=== PATIENT | female | born 1950 | race African-American/Black ===

== ENCOUNTER 2024-11-28 10:12 | Inpatient (IN) | payer MEDICARE, BC ==
[~2024-11-28] VITALS: Ht 170.2 cm; Wt 52.2 kg
[2024-11-28] MEDS ORDERED: ONDANSETRON HCL/PF 4 MG/2 ML VIAL ONE (11:12)
[2024-11-28] MEDS ORDERED: MORPHINE SULFATE INJ 4 MG/ML DISP.SYRIN ONE (11:13)
[2024-11-28] MEDS: IV NS 0.9% 500 ML BAG IV ONE (11:41)
[2024-11-28] MEDS: ONDANSETRON HCL/PF 4 MG/2 ML VIAL IVP ONE (11:42)
[2024-11-28] MEDS: MORPHINE SULFATE INJ 2 MG/ML DISP.SYRIN IV ONE (11:42)
[2024-11-28] MEDS ORDERED: ACETAMINOPHEN ES 500 MG TABLET ONE (12:05)
[2024-11-28 12:13] LABS: BASOPHILS % (AUTO) 0.5 % (0.0-2.0); EOSINOPHILS # (AUTO) 0.1 K/uL (0.0-0.7); EOSINOPHILS % (AUTO) 1.1 % (0.0-6.0); HEMATOCRIT 39 % (33-45); HEMOGLOBIN 12.9 g/dL (11.5-14.8); LYMPHOCYTES # (AUTO) 1.4 K/uL (0.8-4.8); LYMPHOCYTES % (AUTO) 14.9 % (20.0-44.0); MEAN CORPUSCULAR HEMOGLOBIN 30 PG (26.0-33.0); MEAN CORPUSCULAR HGB CONC 33 g/dl (31.0-36.0); MEAN CORPUSCULAR VOLUME 89 fL (82-100); MONOCYTES # (AUTO) 0.6 K/uL (0.1-1.30); MONOCYTES % (AUTO) 6.4 % (2.0-12.0); NEUTROPHILS # (AUTO) 7.1 K/uL (1.8-8.9); NEUTROPHILS % (AUTO) 77.1 % (43.0-81.0); PLATELET COUNT (AUTO) 251 K/uL (150-450); RED BLOOD CELL COUNT(AUTO) 4.36 MIL/uL (4.0-5.2); RED CELL DISTRIBUTION WIDTH 17.6 % (11.5-15.0); WHITE BLOOD COUNT (AUTO) 9.3 K/uL (4.3-11.0)
[2024-11-28] MEDS: ACETAMINOPHEN ES 500 MG TABLET PO ONE (12:15)
[2024-11-28 12:16] LABS: PARTIAL THROMBOPLASTIN TIME 27.1 SEC (24.3-34.3); PROTHROMBIN TIME 10.6 SECS (9.2-11.1)
[2024-11-28 12:38] LABS: CALCIUM, SERUM 10.1 mg/dL (8.5-10.1); CREATININE 0.7 mg/dL (0.6-1.3); POTASSIUM 2.9 mmol/L (3.5-5.1)
[2024-11-28] MEDS ORDERED: NALO4SPR BNOSTRILS (13:52)
[2024-11-28] MEDS ORDERED: HYDR-4303 PO (13:52)
[2024-11-28] MEDS ORDERED: ONDA4TAB11 PO (13:52)
[2024-11-28] MEDS ORDERED: FENTANYL PF 100MCG/2ML AMPUL ONE (14:30)
[2024-11-28] MEDS: FENTANYL PF 100MCG/2ML AMPUL IV ONE (14:34)
[2024-11-28] MEDS ORDERED: ONDANSETRON HCL/PF 4 MG/2 ML VIAL IVP PRN (18:30)
[2024-11-28] MEDS ORDERED: POTASSIUM CHLORIDE 20 MEQ TAB.PRT.SR PO ONE ×2 (18:30→19:23)
[2024-11-28] MEDS ORDERED: MAG HYDROX/AL HYDROX/SIMETH 30 ML UDC PO PRN (18:30)
[2024-11-28] MEDS ORDERED: MORPHINE SULFATE INJ 2 MG/ML DISP.SYRIN IV PRN (18:30)
[2024-11-28] MEDS ORDERED: MAGNESIUM HYDROXIDE 30 ML UDC PO PRN (18:30)
[2024-11-28] MEDS ORDERED: Z GUARD REMEDY 4 OZ OINT TP PRN (18:30)
[2024-11-28] MEDS ORDERED: ACETAMINOPHEN 325 MG TABLET ONE (19:23)
[2024-11-28] MEDS: POTASSIUM CHLORIDE 20 MEQ TAB.PRT.SR PO ONE (21:17)
[2024-11-28] MEDS: ACETAMINOPHEN 325 MG TABLET PO PRN (21:18)
[2024-11-29 07:07] LABS: BASOPHILS % (AUTO) 0.5 % (0.0-2.0); EOSINOPHILS # (AUTO) 0.2 K/uL (0.0-0.7); EOSINOPHILS % (AUTO) 2.4 % (0.0-6.0); HEMATOCRIT 33 % (33-45); HEMOGLOBIN 11.1 g/dL (11.5-14.8); LYMPHOCYTES # (AUTO) 1.7 K/uL (0.8-4.8); LYMPHOCYTES % (AUTO) 18.8 % (20.0-44.0); MEAN CORPUSCULAR HEMOGLOBIN 30 PG (26.0-33.0); MEAN CORPUSCULAR HGB CONC 34 g/dl (31.0-36.0); MEAN CORPUSCULAR VOLUME 88 fL (82-100); MONOCYTES # (AUTO) 0.8 K/uL (0.1-1.30); NEUTROPHILS # (AUTO) 6.2 K/uL (1.8-8.9); NEUTROPHILS % (AUTO) 69.3 % (43.0-81.0); PLATELET COUNT (AUTO) 202 K/uL (150-450); RED BLOOD CELL COUNT(AUTO) 3.74 MIL/uL (4.0-5.2); RED CELL DISTRIBUTION WIDTH 17.3 % (11.5-15.0)
[2024-11-29] MEDS: PANTOPRAZOLE 40 MG TABLET.DR PO SCH (07:30)
[2024-11-29 07:45] LABS: CALCIUM, SERUM 8.7 mg/dL (8.5-10.1); CREATININE 0.5 mg/dL (0.6-1.3); MAGNESIUM 1.9 mg/dL (1.8-2.4); POTASSIUM 3.8 mmol/L (3.5-5.1)
[2024-11-29 08:00] VITALS: BP 117/71; TEMP 98.1; O2SAT 100
[2024-11-29 09:00] VITALS: BP 117/71; TEMP 98.1; O2SAT 100
[2024-11-29] MEDS: HYDROCODONE/APAP 5/325MG TABLET PO PRN (09:00)
[2024-11-29] MEDS ORDERED: TRAMADOL HCL 50 MG TABLET PO PRN (12:00)
[2024-11-29 20:00] VITALS: BP 108/62; TEMP 98.2; O2SAT 100
[2024-11-30 08:54] VITALS: BP 109/64; TEMP 98.4; O2SAT 98
[2024-11-30] MEDS: NEOMY SULF/BACITRAC ZN/POLY 15 GM TUBE TP SCH (11:23)
[2024-11-30] MEDS ORDERED: TRAM50TA2 PO (13:49)
== END 2024-11-30 16:00 | disposition home or self-care (01) | DRG 563 ==
LOC: ER 10:19 → MED 18:09
PROVIDERS: ADMIT Nurse Practitioner Acute Care; ATTEND Nurse Practitioner Acute Care
DX: S42.302A Unspecified fracture of shaft of humerus, left arm, initial encounter for closed fracture (principal); C78.02 Secondary malignant neoplasm of left lung; C78.01 Secondary malignant neoplasm of right lung; C67.9 Malignant neoplasm of bladder, unspecified; G47.00 Insomnia, unspecified; W01.0XXA Fall on same level from slipping, tripping and stumbling without subsequent striking against object, initial encounter; Y93.9 Activity, unspecified; Y92.099 Unspecified place in other non-institutional residence as the place of occurrence of the external cause; Z79.60 Long term (current) use of unspecified immunomodulators and immunosuppressants
CPT/HCPCS: 36415; 70450-TC; 73060-TC; 80048-TC; 83735-TC; 84100-TC; 85025-TC; 85730-TC; 97110-TC; 97116-TC; 97530-TC; 97535-TC; G0378; J2270; J2405; J3010; J7040

== ENCOUNTER 2025-09-02 08:17 | Inpatient (IN) | payer MEDICARE, BC ==
[~2025-09-02] VITALS: Ht 170.2 cm; Wt 47.2 kg
[~2025-09-02 08:17] MED LIST: HYDR-4303 PO; NALO4SPR BNOSTRILS; ONDA4TAB11 PO; TRAM50TA2 PO
[2025-09-02 09:36] LABS: PLATELET COUNT (AUTO) 301 K/uL (150-450); RED BLOOD CELL COUNT(AUTO) 3.95 MIL/uL (4.0-5.2); RED CELL DISTRIBUTION WIDTH 17.3 % (11.5-15.0); WHITE BLOOD COUNT (AUTO) 12.6 K/uL (4.3-11.0)
[2025-09-02 09:51] LABS: ASPARTATE AMINOTRANSFERASE 28 U/L (15-37); CREATININE 0.8 mg/dL (0.6-1.3); SODIUM SERUM 139 mmol/L (136-145); TOTAL PROTEIN, SERUM 8.2 g/dL (6.4-8.2); UREA NITROGEN, BLOOD 15 mg/dL (7-18)
[2025-09-02 09:56] LABS: CREATINE KINASE, TOTAL 95 U/L (26-192)
[2025-09-02 10:09] LABS: CALCIUM, SERUM 14.8 mg/dL (8.5-10.1)
[2025-09-02 10:27] LABS: APPEARANCE,URINE CLOUDY (CLEAR); BLOOD, URINE NEGATIVE Ery/uL (NEGATIVE); LEUKOCYTE ESTERASE ,URINE NEGATIVE (NEGATIVE); NITRITE, URINE NEGATIVE (NEGATIVE); UGLUCOSE NEGATIVE (NEGATIVE)
[2025-09-02 10:28] LABS: ADD URINE CULTURE NO; SQUAMOUS EPITHELIAL CELL,UR Few /HPF (None Seen)
[2025-09-02 10:39] LABS: AMPHETAMINE, URINE NEGATIVE (NEGATIVE); BARBITURATE, URINE NEGATIVE (NEGATIVE); BENZODIAZEPINE, URINE NEGATIVE (NEGATIVE); CANNABINOID, URINE NEGATIVE (NEGATIVE); COCCAINE, URINE NEGATIVE (NEGATIVE); OPIATE, URINE NEGATIVE (NEGATIVE)
[2025-09-02] MEDS: IV NS 0.9% 1,000 ML IV ONE (10:41)
[2025-09-02] MEDS ORDERED: MAGNESIUM HYDROXIDE 30 ML UDC PO PRN (11:00)
[2025-09-02] MEDS ORDERED: MAG HYDROX/AL HYDROX/SIMETH 30 ML UDC PO PRN (11:00)
[2025-09-02] MEDS ORDERED: ACETAMINOPHEN 325 MG TABLET PO PRN (11:00)
[2025-09-02] MEDS ORDERED: Z GUARD REMEDY 4 OZ OINT TP PRN (11:00)
[2025-09-02] MEDS ORDERED: ONDANSETRON HCL/PF 4 MG/2 ML VIAL IVP PRN (11:00)
[2025-09-02] MEDS ORDERED: TRAMADOL HCL 50 MG TABLET PO PRN (11:00)
[2025-09-02] MEDS ORDERED: HYDROCODONE/APAP 5/325MG TABLET PO PRN (11:00)
[2025-09-02] MEDS ORDERED: MEGE400O6 PO (11:02)
[2025-09-02 11:40] VITALS: BP 100/63; TEMP 97.7; O2SAT 99
[2025-09-02 15:00] VITALS: BP 114/62; TEMP 98.2; O2SAT 99
[2025-09-02] MEDS: IV NS 0.9% 1,000 ML IV SCH (18:32)
[2025-09-02 20:00] VITALS: BP 98/54; TEMP 98.2; O2SAT 97
[2025-09-03 07:09] LABS: PLATELET COUNT (AUTO) 294 K/uL (150-450); RED BLOOD CELL COUNT(AUTO) 3.22 MIL/uL (4.0-5.2); RED CELL DISTRIBUTION WIDTH 16.3 % (11.5-15.0); WHITE BLOOD COUNT (AUTO) 9.9 K/uL (4.3-11.0)
[2025-09-03 07:35] LABS: CREATININE 0.7 mg/dL (0.6-1.3); PHOSPHORUS 2.4 mg/dL (2.5-4.9); SODIUM SERUM 142.0 mmol/L (136-145); UREA NITROGEN, BLOOD 14.0 mg/dL (7-18)
[2025-09-03 07:39] LABS: CALCIUM, SERUM 15.3 mg/dL (8.5-10.1)
[2025-09-03 08:00] VITALS: BP 109/67; TEMP 97.5; O2SAT 99
[2025-09-03] MEDS: PAMIDRONATE 90 MG in IV NS 0.9% 500 ML IV ONE (10:37)
[2025-09-03 16:00] VITALS: BP 102/61; TEMP 97.7; O2SAT 98
[2025-09-03] MEDS: K PHOS NEUTRAL 250 MG TABLET PO ONE (17:23)
[2025-09-03 17:58] LABS: FIBRINOGEN ACTIVITY 485.0 Mg/dL (213-485); INR 1.03 (0.91-1.10)
[2025-09-03 18:46] LABS: IRON, SERUM 22.0 ug/dl (50-175)
[2025-09-03 20:00] VITALS: BP 105/66; TEMP 97.3; O2SAT 98
[2025-09-04] MEDS: IV NS 0.9% 1,000 ML IV PRN ×2 (03:33→17:04)
[2025-09-04 07:09] LABS: PLATELET COUNT (AUTO) 270 K/uL (150-450); RED BLOOD CELL COUNT(AUTO) 3.01 MIL/uL (4.0-5.2); RED CELL DISTRIBUTION WIDTH 15.8 % (11.5-15.0); WHITE BLOOD COUNT (AUTO) 9.5 K/uL (4.3-11.0)
[2025-09-04 07:31] LABS: ASPARTATE AMINOTRANSFERASE 23.0 U/L (15-37); CREATININE 0.7 mg/dL (0.6-1.3); PHOSPHORUS 2.5 mg/dL (2.5-4.9); SODIUM SERUM 144.0 mmol/L (136-145); TOTAL PROTEIN, SERUM 6.7 g/dL (6.4-8.2); UREA NITROGEN, BLOOD 16.0 mg/dL (7-18)
[2025-09-04 07:53] LABS: CALCIUM, SERUM 13.6 mg/dL (8.5-10.1)
[2025-09-04 08:00] VITALS: BP 109/59; TEMP 97.3; O2SAT 97
[2025-09-04] MEDS: POTASSIUM CHLORIDE 20 MEQ TAB.PRT.SR PO ONE ×2 (09:23→22:36)
[2025-09-04 16:00] VITALS: BP 101/60; TEMP 97.5; O2SAT 99
[2025-09-04] MEDS: FERROUS SULFATE (325 MG) 325 MG/TAB TABLET PO SCH (17:04)
[2025-09-04 20:00] VITALS: BP 102/55; TEMP 98.2; O2SAT 95
[2025-09-05 06:09] LABS: AFP, TUMOR MARKER 3.0 ng/mL (0.0-9.2); CARBOHYDRATE AG 19-9 6 U/mL (0-35); CARCINOEMBRYONIC ANTIGEN (CEA) 1.7 ng/mL (0.0-4.7)
[2025-09-05 07:39] LABS: PLATELET COUNT (AUTO) 251 K/uL (150-450); RED BLOOD CELL COUNT(AUTO) 2.80 MIL/uL (4.0-5.2); RED CELL DISTRIBUTION WIDTH 15.8 % (11.5-15.0); WHITE BLOOD COUNT (AUTO) 7.0 K/uL (4.3-11.0)
[2025-09-05 08:00] VITALS: BP 98/50; TEMP 97.5; O2SAT 98
[2025-09-05 08:09] LABS: FREE KAPPA LT CHAINS SERUM 45.4 mg/L (3.3-19.4); FREE LAMBDA LT CHAIN SERUM 25.9 mg/L (5.7-26.3); IMMUNOGLOBULIN A, SERUM 301 mg/dL (64-422); IMMUNOGLOBULIN M, SERUM 47 mg/dL (26-217); KAPPA/LAMBDA RATIO SERUM 1.75 (0.26-1.65)
[2025-09-05 08:28] LABS: CALCIUM, SERUM 12.9 mg/dL (8.5-10.1); CREATININE 0.6 mg/dL (0.6-1.3); SODIUM SERUM 144.0 mmol/L (136-145); UREA NITROGEN, BLOOD 14.0 mg/dL (7-18)
[2025-09-05] MEDS ORDERED: DIAZEPAM 5 MG TABLET PO ONE (10:00)
[2025-09-05 10:09] LABS: FOLIC ACID 2.6 ng/mL (>3.0)
[2025-09-05] MEDS: IV 1/2NS 1000 ML 1,000 ML IV SCH (10:21)
[2025-09-05] MEDS: DIAZEPAM 5 MG TABLET PO ONE (11:56)
[2025-09-05] MEDS: FOLIC ACID 1 MG TABLET PO SCH (13:19)
[2025-09-05 16:00] VITALS: BP 111/60; TEMP 97.9; O2SAT 98
[2025-09-05 20:00] VITALS: BP 108/57; TEMP 97.9; O2SAT 99
[2025-09-06 07:04] LABS: CALCIUM, SERUM 12.8 mg/dL (8.5-10.1); CREATININE 0.7 mg/dL (0.6-1.3); SODIUM SERUM 140.0 mmol/L (136-145); UREA NITROGEN, BLOOD 12.0 mg/dL (7-18)
[2025-09-06 07:05] LABS: PLATELET COUNT (AUTO) 279 K/uL (150-450); RED BLOOD CELL COUNT(AUTO) 3.08 MIL/uL (4.0-5.2); RED CELL DISTRIBUTION WIDTH 15.2 % (11.5-15.0); WHITE BLOOD COUNT (AUTO) 8.1 K/uL (4.3-11.0)
[2025-09-06 08:56] VITALS: BP 107/60; TEMP 97.9; O2SAT 98
[2025-09-06] MEDS: DIAZEPAM 5 MG TABLET PO ONE (13:21)
[2025-09-06 16:28] VITALS: BP 108/58; TEMP 97.3; O2SAT 100
[2025-09-06] MEDS: CYANOCOBALAMIN 1,000 MCG/ML VIAL IM SCH (16:56)
[2025-09-06] MEDS: IV 1/2NS 1000 ML 1,000 ML IV PRN (19:18)
[2025-09-06 20:00] VITALS: BP 115/64; TEMP 97.7; O2SAT 98
[2025-09-07 07:00] VITALS: BP 90/60; TEMP 98.1; O2SAT 99
[2025-09-07 07:06] LABS: CALCIUM, SERUM 12.5 mg/dL (8.5-10.1); CREATININE 0.6 mg/dL (0.6-1.3); SODIUM SERUM 139.0 mmol/L (136-145); UREA NITROGEN, BLOOD 11.0 mg/dL (7-18)
[2025-09-07 07:07] LABS: PLATELET COUNT (AUTO) 294 K/uL (150-450); RED BLOOD CELL COUNT(AUTO) 3.36 MIL/uL (4.0-5.2); RED CELL DISTRIBUTION WIDTH 15.4 % (11.5-15.0); WHITE BLOOD COUNT (AUTO) 7.4 K/uL (4.3-11.0)
[2025-09-07] MEDS ORDERED: GADOTERATE MEGLUMINE 5 MMOL/10 ML VIAL IV ONE (09:48)
[2025-09-07] MEDS: PAMIDRONATE 90 MG in IV NS 0.9% 500 ML IV ONE (10:07)
== END 2025-09-07 14:55 | DRG 640 ==
LOC: ER 08:22 → MED 10:52
PROVIDERS: ADMIT Internal Medicine; ATTEND Internal Medicine
DX: E83.52 Hypercalcemia (principal); G93.41 Metabolic encephalopathy; G93.6 Cerebral edema; C78.01 Secondary malignant neoplasm of right lung; C78.02 Secondary malignant neoplasm of left lung; C79.51 Secondary malignant neoplasm of bone; J90 Pleural effusion, not elsewhere classified; C79.31 Secondary malignant neoplasm of brain; C78.7 Secondary malignant neoplasm of liver and intrahepatic bile duct; E86.0 Dehydration; R41.82 Altered mental status, unspecified; C67.9 Malignant neoplasm of bladder, unspecified; Z92.21 Personal history of antineoplastic chemotherapy; D64.9 Anemia, unspecified; Z79.60 Long term (current) use of unspecified immunomodulators and immunosuppressants; Z88.5 Allergy status to narcotic agent
CPT/HCPCS: 36415; 70450-TC; 70553-TC; 71045-TC; 72125-TC; 72170-TC; 80048-TC; 80076-TC; 81001; 82105; 82378; 82550-TC; 82607-TC; 82728-TC; 82784; 83540-TC; 83615-TC; 83735-TC; 83970; 84100-TC; 84155; 84165; 84439-TC; 84443-TC; 84484-TC; 85025-TC; 85396; 86301; 86334; 87040-TC; 92526; 92611; 97110-TC; 97116-TC; 97530-TC; 97535-TC; A4223; A9575; G0378; J2430; J3420; J3490; J7030; J7040

== ENCOUNTER 2025-10-05 15:08 | Inpatient (IN) | payer MEDICARE, BC ==
[~2025-10-05] VITALS: Ht 167.6 cm; Wt 43.1 kg
[~2025-10-05 15:08] MED LIST changes: +MEGE400O6 PO
[2025-10-05] MEDS: IV NS 0.9% 1,000 ML BAG IV ONE (15:37)
[2025-10-05 15:47] LABS: PLATELET COUNT (AUTO) 318 K/uL (150-450); RED BLOOD CELL COUNT(AUTO) 3.64 MIL/uL (4.0-5.2); RED CELL DISTRIBUTION WIDTH 14.8 % (11.5-15.0); WHITE BLOOD COUNT (AUTO) 11.4 K/uL (4.3-11.0)
[2025-10-05] MEDS ORDERED: POLY17PO4 PO (15:47)
[2025-10-05] MEDS ORDERED: FAMO20TA29 PO (15:47)
[2025-10-05] MEDS ORDERED: ONDA-97 PO (15:47)
[2025-10-05] MEDS ORDERED: ACET325T53 PO (15:47)
[2025-10-05] MEDS ORDERED: MAGN400O6 PO (15:47)
[2025-10-05 15:48] LABS: CREATININE 0.5 mg/dL (0.6-1.3); SODIUM SERUM 138.0 mmol/L (136-145); UREA NITROGEN, BLOOD 17.0 mg/dL (7-18)
[2025-10-05 16:02] LABS: CALCIUM, SERUM 15.3 mg/dL (8.5-10.1)
[2025-10-05] MEDS ORDERED: MAG HYDROX/AL HYDROX/SIMETH 30 ML UDC PO PRN (17:00)
[2025-10-05] MEDS ORDERED: MAGNESIUM HYDROXIDE 30 ML UDC PO PRN (17:00)
[2025-10-05 17:30] VITALS: BP 109/61; TEMP 97.5; O2SAT 98
[2025-10-05 17:40] VITALS: BP 109/61; TEMP 98.4; O2SAT 98
[2025-10-05] MEDS: IV D5/ 0.9% NACL 1,000 ML IV SCH (17:57)
[2025-10-05 20:00] VITALS: BP 106/63; TEMP 97.5; O2SAT 98
[2025-10-05] MEDS ORDERED: PAMIDRONATE 30 MG/VIAL VIAL IV ONE (20:45)
[2025-10-05] MEDS: PAMIDRONATE 90 MG in IV NS 0.9% 500 ML IV ONE (21:50)
[2025-10-05 22:20] LABS: ASPARTATE AMINOTRANSFERASE 27.0 U/L (15-37); CREATININE 0.5 mg/dL (0.6-1.3); SODIUM SERUM 139.0 mmol/L (136-145); TOTAL PROTEIN, SERUM 6.7 g/dL (6.4-8.2); UREA NITROGEN, BLOOD 15.0 mg/dL (7-18)
[2025-10-05 22:55] LABS: CALCIUM, SERUM 14.0 mg/dL (8.5-10.1)
[2025-10-06] VITALS (7 sets, daily range): BP systolic 85–112; BP diastolic 50–77; TEMP 97.3–98.6; O2SAT 97–99
[2025-10-06] MEDS: POTASSIUM CHLORIDE 10 MEQ/50 ML PREMIXED IVPB FOR PERIPHERAL LINE IV ONE (02:09)
[2025-10-06 08:09] LABS: PLATELET COUNT (AUTO) 306 K/uL (150-450); RED BLOOD CELL COUNT(AUTO) 3.35 MIL/uL (4.0-5.2); RED CELL DISTRIBUTION WIDTH 15.1 % (11.5-15.0); WHITE BLOOD COUNT (AUTO) 10.3 K/uL (4.3-11.0)
[2025-10-06 08:28] LABS: INR 1.11 (0.91-1.10)
[2025-10-06 08:38] LABS: ASPARTATE AMINOTRANSFERASE 29.0 U/L (15-37); CREATININE 0.5 mg/dL (0.6-1.3); PHOSPHORUS 2.0 mg/dL (2.5-4.9); SODIUM SERUM 142.0 mmol/L (136-145); TOTAL PROTEIN, SERUM 6.9 g/dL (6.4-8.2); UREA NITROGEN, BLOOD 12.0 mg/dL (7-18)
[2025-10-06 09:02] LABS: CALCIUM, SERUM 14.1 mg/dL (8.5-10.1)
[2025-10-06 09:34] LABS: APPEARANCE,URINE SLIGHTLY CLOUDY (CLEAR); BLOOD, URINE TRACE-INTA Ery/uL (NEGATIVE); LEUKOCYTE ESTERASE ,URINE 3+ (NEGATIVE); NITRITE, URINE POSITIVE (NEGATIVE); UGLUCOSE NEGATIVE (NEGATIVE)
[2025-10-06 09:38] LABS: ADD URINE CULTURE YES; SQUAMOUS EPITHELIAL CELL,UR 0-2 /HPF (None Seen); URINE AMORPHOUS URATE Few /HPF (None Seen)
[2025-10-06] MEDS: Sodium Phosphate 15 MMOL in IV NS 0.9% 245 ML IV SCH (18:20)
[2025-10-07] VITALS: BP 98/62; TEMP 97.3; O2SAT 99
[2025-10-07 05:00] VITALS: BP 110/60; TEMP 97.3; O2SAT 97
[2025-10-07 07:00] VITALS: BP 100/71; O2SAT 100
[2025-10-07] MEDS: THERAHONEY GEL 1.5 OZ TUBE TP SCH (08:29)
[2025-10-07 10:44] LABS: PLATELET COUNT (AUTO) 253 K/uL (150-450); RED BLOOD CELL COUNT(AUTO) 3.14 MIL/uL (4.0-5.2); RED CELL DISTRIBUTION WIDTH 15.1 % (11.5-15.0); WHITE BLOOD COUNT (AUTO) 10.4 K/uL (4.3-11.0)
[2025-10-07 11:00] VITALS: BP 102/57; TEMP 97.5; O2SAT 100
[2025-10-07 11:05] LABS: ASPARTATE AMINOTRANSFERASE 25.0 U/L (15-37); CALCIUM, SERUM 12.9 mg/dL (8.5-10.1); CREATININE 0.5 mg/dL (0.6-1.3); PHOSPHORUS 1.7 mg/dL (2.5-4.9); SODIUM SERUM 143.0 mmol/L (136-145); TOTAL PROTEIN, SERUM 6.4 g/dL (6.4-8.2); UREA NITROGEN, BLOOD 9.0 mg/dL (7-18)
[2025-10-07] MEDS: CEFTRIAXONE 1 G in IV D5W 50 ML IV SCH (12:24)
[2025-10-07] MEDS ORDERED: POTASSIUM CL. PREMIX PERIPHER. 50 ML IV SCH (13:00)
[2025-10-07] MEDS ORDERED: Sodium Phosphate 30 MMOL in IV NS 0.9% 250 ML IV ONE (13:00)
[2025-10-07] MEDS ORDERED: POTASSIUM PHOSPHATE MM 7.5 MMOL in IV NS 0.9% 100 ML IV SCH (13:00)
[2025-10-07] MEDS: POTASSIUM CL. PREMIX PERIPHER. 50 ML IV SCH (13:21)
[2025-10-07 15:00] VITALS: BP 101/60; TEMP 97.3; O2SAT 99
[2025-10-07] MEDS: POTASSIUM PHOSPHATE MM 7.5 MMOL in IV NS 0.9% 100 ML IV SCH (17:53)
[2025-10-07 20:00] VITALS: BP 108/61; TEMP 96.8; O2SAT 100
[2025-10-08 01:27] VITALS: BP 99/58; TEMP 98.1; O2SAT 100
[2025-10-08 04:00] VITALS: BP 99/63; TEMP 97.7; O2SAT 98
[2025-10-08] MEDS: CALCITONIN,SALMON INJ 400 UNITS/2 ML VIAL SQ SCH (08:33)
[2025-10-08 09:11] VITALS: BP 108/59; TEMP 97.9; O2SAT 100
[2025-10-08 17:29] LABS: PLATELET COUNT (AUTO) 256 K/uL (150-450); RED BLOOD CELL COUNT(AUTO) 3.18 MIL/uL (4.0-5.2); RED CELL DISTRIBUTION WIDTH 15.2 % (11.5-15.0); WHITE BLOOD COUNT (AUTO) 10.4 K/uL (4.3-11.0)
[2025-10-08 17:40] LABS: CALCIUM, SERUM 12.0 mg/dL (8.5-10.1); CREATININE 0.6 mg/dL (0.6-1.3); PHOSPHORUS 1.4 mg/dL (2.5-4.9); SODIUM SERUM 141.0 mmol/L (136-145); UREA NITROGEN, BLOOD 5.0 mg/dL (7-18)
[2025-10-08 17:44] LABS: IRON, SERUM 13.0 ug/dl (50-175)
[2025-10-08 20:00] VITALS: BP 115/66; TEMP 97.3; O2SAT 100
[2025-10-09] VITALS: BP 136/86; TEMP 98.1; O2SAT 98
[2025-10-09 04:00] VITALS: BP 118/70; TEMP 97.9; O2SAT 100
[2025-10-09 07:00] VITALS: BP 108/63; TEMP 97.5; O2SAT 99
[2025-10-09 07:01] LABS: PLATELET COUNT (AUTO) 303 K/uL (150-450); RED BLOOD CELL COUNT(AUTO) 3.43 MIL/uL (4.0-5.2); RED CELL DISTRIBUTION WIDTH 14.5 % (11.5-15.0); WHITE BLOOD COUNT (AUTO) 11.8 K/uL (4.3-11.0)
[2025-10-09 08:15] LABS: CALCIUM, SERUM 11.5 mg/dL (8.5-10.1); CREATININE 0.5 mg/dL (0.6-1.3); PHOSPHORUS 1.3 mg/dL (2.5-4.9); SODIUM SERUM 143.0 mmol/L (136-145); UREA NITROGEN, BLOOD 4.0 mg/dL (7-18)
[2025-10-09] MEDS ORDERED: POTASSIUM CL. PREMIX PERIPHER. 50 ML IV SCH (10:30)
[2025-10-09] MEDS: Potassium Chloride 10 MEQ, LIDOCAINE HCL/PF 1% 1 ML in IV D5W 50 ML IV SCH (11:14)
[2025-10-09] MEDS: Thiamine 100 MG in IV D5W 50 ML IV SCH (13:06)
[2025-10-09] MEDS: JEVITY 1.2 CAL 1,000 ML BOTTLE GT PRN (13:37)
[2025-10-09] MEDS: NEUTRA PHOS 1 POWD.PACKET GT ONE (16:29)
[2025-10-09] MEDS ORDERED: METOPROLOL TARTRATE INJ 5 MG/5 ML AMPUL IVP PRN (18:00)
[2025-10-09 22:04] VITALS: BP 99/69; TEMP 97.9; O2SAT 98
[2025-10-10 06:24] LABS: PLATELET COUNT (AUTO) 237 K/uL (150-450); RED BLOOD CELL COUNT(AUTO) 2.99 MIL/uL (4.0-5.2); RED CELL DISTRIBUTION WIDTH 15.2 % (11.5-15.0); WHITE BLOOD COUNT (AUTO) 8.7 K/uL (4.3-11.0)
[2025-10-10 06:43] LABS: CALCIUM, SERUM 11.7 mg/dL (8.5-10.1); CREATININE 0.5 mg/dL (0.6-1.3); PHOSPHORUS 1.7 mg/dL (2.5-4.9); UREA NITROGEN, BLOOD 5.0 mg/dL (7-18)
[2025-10-10 06:49] LABS: SODIUM SERUM 142.0 mmol/L (136-145)
[2025-10-10 08:00] VITALS: BP 116/66; TEMP 98.1; O2SAT 99
[2025-10-10] MEDS: CALCITONIN,SALMON INJ 400 UNITS/2 ML VIAL SQ SCH (09:19)
[2025-10-10 10:07] LABS: FOLIC ACID 2.2 ng/mL (>3.0); IMMUNOGLOBULIN A, SERUM 490 mg/dL (64-422); IMMUNOGLOBULIN M, SERUM 42 mg/dL (26-217)
[2025-10-10] MEDS: POTASSIUM CL. PREMIX PERIPHER. 50 ML IV SCH ×2 (10:56→19:08)
[2025-10-10] MEDS: FOLIC ACID 1 MG TABLET PO SCH (11:38)
[2025-10-10 12:11] LABS: FREE KAPPA LT CHAINS SERUM 40.4 mg/L (3.3-19.4); FREE LAMBDA LT CHAIN SERUM 30.4 mg/L (5.7-26.3); KAPPA/LAMBDA RATIO SERUM 1.33 (0.26-1.65)
[2025-10-10] MEDS: NEUTRA PHOS 1 POWD.PACKET GT ONE (15:51)
[2025-10-10 16:06] VITALS: BP 110/67; TEMP 98.2; O2SAT 99
[2025-10-10] MEDS ORDERED: POTASSIUM CHLORIDE 10 MEQ/50 ML PREMIXED IVPB FOR PERIPHERAL LINE IV ONE (17:30)
[2025-10-10 20:00] VITALS: BP 101/60; TEMP 97.3; O2SAT 99
[2025-10-10] MEDS: ACETAMINOPHEN 325 MG TABLET PO PRN (22:24)
[2025-10-10] MEDS: IV NS 0.9% 1,000 ML IV PRN (22:25)
[2025-10-11] VITALS: BP 106/90; TEMP 97.7; O2SAT 99
[2025-10-11 06:39] LABS: PLATELET COUNT (AUTO) 265 K/uL (150-450); RED BLOOD CELL COUNT(AUTO) 3.25 MIL/uL (4.0-5.2); RED CELL DISTRIBUTION WIDTH 14.5 % (11.5-15.0); WHITE BLOOD COUNT (AUTO) 10.4 K/uL (4.3-11.0)
[2025-10-11 07:07] LABS: FIBRINOGEN ACTIVITY 349.0 Mg/dL (213-485); INR 1.11 (0.91-1.10)
[2025-10-11 07:11] LABS: CALCIUM, SERUM 11.5 mg/dL (8.5-10.1); CREATININE 0.5 mg/dL (0.6-1.3); PHOSPHORUS 1.8 mg/dL (2.5-4.9); SODIUM SERUM 141.0 mmol/L (136-145); UREA NITROGEN, BLOOD 8.0 mg/dL (7-18)
[2025-10-11] MEDS: Potassium Chloride 10 MEQ in IV NS 0.9% 1,000 ML IV PRN (09:33)
[2025-10-11] MEDS: Potassium Chloride 10 MEQ in IV NS 0.9% 1,000 ML IV SCH (10:54)
[2025-10-11] MEDS: Magnesium 1GM/D5W 100ML PREMIX 100 ML IV SCH (10:54)
[2025-10-11 10:56] VITALS: BP 119/74; TEMP 97.7; O2SAT 99
[2025-10-11] MEDS: POTASSIUM PHOSPHATE MM 5 MMOL in IV NS 0.9% 100 ML IV SCH (12:03)
[2025-10-11 13:09] LABS: *SPE A/G RATIO 0.7 (0.7-1.7); *SPE ALBUMIN 2.6 g/dL (2.9-4.4); *SPE ALPHA-1-GLOBULIN 0.4 g/dL (0.0-0.4); *SPE ALPHA-2-GLOBULIN 0.9 g/dL (0.4-1.0); *SPE BETA GLOBULIN 1.1 g/dL (0.7-1.3); *SPE GLOBULIN, TOTAL 3.8 g/dL (2.2-3.9); *SPE M-SPIKE 0.3 g/dL (Not Observed); *SPE PROTEIN TOTAL 6.4 g/dL (6.0-8.5); *SPEGAMMA GLOBULIN 1.4 g/dL (0.4-1.8)
[2025-10-11] MEDS ORDERED: Potassium Chloride 10 MEQ in IV NS 0.9% 1,000 ML IV SCH (16:01)
[2025-10-11] MEDS: SOD FERRIC GLUC 125 MG in IV NS 0.9% 100 ML IV SCH (17:34)
[2025-10-11 20:00] VITALS: BP 96/60; TEMP 97.5; O2SAT 100
[2025-10-12] VITALS (7 sets, daily range): BP systolic 93–122; BP diastolic 56–86; TEMP 97.7–98.8; O2SAT 98–100
[2025-10-12] MEDS: ONDANSETRON HCL/PF 4 MG/2 ML VIAL IVP PRN (06:09)
[2025-10-12 07:42] LABS: PLATELET COUNT (AUTO) 251 K/uL (150-450); RED BLOOD CELL COUNT(AUTO) 2.96 MIL/uL (4.0-5.2); RED CELL DISTRIBUTION WIDTH 15.0 % (11.5-15.0); WHITE BLOOD COUNT (AUTO) 11.0 K/uL (4.3-11.0)
[2025-10-12 08:03] LABS: CALCIUM, SERUM 12.1 mg/dL (8.5-10.1); CREATININE 0.5 mg/dL (0.6-1.3); PHOSPHORUS 2.3 mg/dL (2.5-4.9); SODIUM SERUM 142.0 mmol/L (136-145); UREA NITROGEN, BLOOD 10.0 mg/dL (7-18)
[2025-10-12] MEDS: POTASSIUM PHOSPHATE MM 5 MMOL in IV NS 0.9% 100 ML IV SCH (11:31)
[2025-10-12] MEDS: PAMIDRONATE 90 MG in IV NS 0.9% 500 ML IV ONE (17:22)
[2025-10-13] VITALS: BP 124/58; TEMP 98.4; O2SAT 98
[2025-10-13 04:00] VITALS: BP 109/53; TEMP 98.1; O2SAT 98
[2025-10-13 07:13] LABS: PLATELET COUNT (AUTO) 236 K/uL (150-450); RED BLOOD CELL COUNT(AUTO) 2.97 MIL/uL (4.0-5.2); RED CELL DISTRIBUTION WIDTH 14.5 % (11.5-15.0); WHITE BLOOD COUNT (AUTO) 10.6 K/uL (4.3-11.0)
[2025-10-13 07:25] LABS: CALCIUM, SERUM 12.9 mg/dL (8.5-10.1); CREATININE 0.4 mg/dL (0.6-1.3); PHOSPHORUS 2.1 mg/dL (2.5-4.9); SODIUM SERUM 143.0 mmol/L (136-145); UREA NITROGEN, BLOOD 7.0 mg/dL (7-18)
[2025-10-13 08:00] VITALS: BP 100/55; TEMP 97.3; O2SAT 98
[2025-10-13 12:00] VITALS: BP 109/65; TEMP 97.9; O2SAT 92
[2025-10-13] MEDS: Potassium Chloride 10 MEQ in IV D5/0.45 NACL 1,000 ML IV SCH (14:09)
[2025-10-13] MEDS: POTASSIUM PHOSPHATE MM 5 MMOL in IV NS 0.9% 100 ML IV SCH (14:10)
[2025-10-13 16:00] VITALS: BP 142/70; TEMP 97.9; O2SAT 99
[2025-10-13 20:00] VITALS: BP 106/65; TEMP 97.3; O2SAT 96
[2025-10-14 06:42] LABS: PLATELET COUNT (AUTO) 266 K/uL (150-450); RED BLOOD CELL COUNT(AUTO) 3.06 MIL/uL (4.0-5.2); RED CELL DISTRIBUTION WIDTH 14.9 % (11.5-15.0); WHITE BLOOD COUNT (AUTO) 12.4 K/uL (4.3-11.0)
[2025-10-14 06:59] LABS: CALCIUM, SERUM 12.4 mg/dL (8.5-10.1); CREATININE 0.4 mg/dL (0.6-1.3); PHOSPHORUS 1.9 mg/dL (2.5-4.9); SODIUM SERUM 139.0 mmol/L (136-145); UREA NITROGEN, BLOOD 7.0 mg/dL (7-18)
[2025-10-14 08:00] VITALS: BP 115/59; TEMP 97.7; O2SAT 100
[2025-10-14] MEDS ORDERED: JEVITY 1.2 CAL 1,000 ML BOTTLE GT PRN (10:00)
[2025-10-14] MEDS ORDERED: NEUTRA PHOS 1 POWD.PACKET GT ONE (16:00)
== END 2025-10-14 15:30 | DRG 686 ==
LOC: ER 15:14 → MED 16:35 → TELE 20:03 → MED 10-13 12:40
PROVIDERS: ATTEND Nurse Practitioner Acute Care
PROC: 0DH63UZ Insertion of Feeding Device into Stomach, Percutaneous Approach (ICD-10-PCS; principal; 2025-10-13 08:50)
DX: C67.9 Malignant neoplasm of bladder, unspecified (principal); E43 Unspecified severe protein-calorie malnutrition; G92.8 Other toxic encephalopathy; G93.6 Cerebral edema; L89.150 Pressure ulcer of sacral region, unstageable; C78.01 Secondary malignant neoplasm of right lung; C78.02 Secondary malignant neoplasm of left lung; L89.310 Pressure ulcer of right buttock, unstageable; N39.0 Urinary tract infection, site not specified; C79.51 Secondary malignant neoplasm of bone; C79.31 Secondary malignant neoplasm of brain; R64 Cachexia; Z68.1 Body mass index [BMI] 19.9 or less, adult; R62.7 Adult failure to thrive; R13.10 Dysphagia, unspecified; E86.0 Dehydration; E83.39 Other disorders of phosphorus metabolism; E86.1 Hypovolemia; E88.09 Other disorders of plasma-protein metabolism, not elsewhere classified; I48.91 Unspecified atrial fibrillation; E83.52 Hypercalcemia; K29.70 Gastritis, unspecified, without bleeding; L22 Diaper dermatitis; Z92.3 Personal history of irradiation; Z79.60 Long term (current) use of unspecified immunomodulators and immunosuppressants; E87.6 Hypokalemia; R32 Unspecified urinary incontinence
CPT/HCPCS: 36415; 43246; 71045-TC; 71250-TC; 80048-TC; 80053-TC; 81001; 82040-TC; 82607-TC; 82728-TC; 82784; 82962-TC; 83540-TC; 83735-TC; 83970; 84100-TC; 84132-TC; 84155; 84165; 84439-TC; 84443-TC; 85025-TC; 85045-TC; 85396; 85610-TC; 85730-TC; 86334; 86850-TC; 87081-TC; 87086-TC; 93307-TC; A4223; A9563; G0378; J0630; J0690; J0696; J2405; J2430; J2704; J2916; J3411; J3475; J3480; J3490; J7030; J7040; J7042; J7050; J7060; J7070